=== PATIENT | male | born 1960 | race African-American/Black ===

== ENCOUNTER 2022-07-10 10:15 | Inpatient (IN) ==
[2022-07-10] MEDS ORDERED: hydrALAZINE 20 MG/1 ML VIAL IV STA (11:45)
[2022-07-10] MEDS ORDERED: ONDANSETRON 4 MG/2 ML VIAL IV STA (11:45)
[2022-07-10] MEDS ORDERED: ONDANSETRON 4 MG/2 ML VIAL ONE (11:46)
[2022-07-10] MEDS ORDERED: hydrALAZINE 20 MG/1 ML VIAL ONE (11:46)
[2022-07-10 11:51] LABS: Basophils # 0.1 10*3/uL (0.0-0.2); Basophils % 0.5 % (0.0-0.8); Eosinophils # 0.2 10*3/uL (0.0-0.87); Eosinophils % 1.7 % (0.00-10.9); Hematocrit 31.3 VOL% (42.0-52.0); Hemoglobin 10.6 GM/DL (14.0-18.0); Immature Granulocytes % 0.3 %; Immature Granulocytes Absolute 0.04 #; Lymphocytes # 1.1 10*3/uL (1.4-4.0); Lymphocytes % 8.7 % (21.2-54.2); Mean Corpuscular HGB Conc 33.9 GM/DL (32-36); Mean Corpuscular Volume 71.6 FL (87-102); Monocytes # 1.2 10*3/uL (0.11-0.8); Monocytes % 9.2 % (1.7-12.7); Neutrophils % 79.6 % (38.7-73.9); Platelet Count 170 T/CUMM (130-400); Red Blood Count 4.37 MC/CUMM (3.8-5.5); Red Cell Distribution Width 19.9 % (9.3-17.3); White Blood Count 12.9 T/CUMM (4-12)
[2022-07-10 12:08] LABS: Albumin 4.4 G/DL (3.4-5.0); Bilirubin,Total 1.2 MG/DL (0.20-1.00); Calcium 10.2 MG/DL (8.5-10.1); Osmolality,Calculated 271.4 MOS/KG (273-304); Potassium 3.9 MMOL/L (3.5-5.1)
[2022-07-10] MEDS ORDERED: ACETAMINOPHEN 325 MG TABLET PO PRN (15:22)
[2022-07-10] MEDS ORDERED: DOCUSATE SODIUM 100 MG CAPSULE PO PRN (15:22)
[2022-07-10] MEDS ORDERED: hydrALAZINE 20 MG/1 ML VIAL IV PRN (15:22)
[2022-07-10] MEDS ORDERED: cloNIDine 0.2 MG/24 HR PATCH TRANSDERM SCH (15:30)
[2022-07-10] MEDS ORDERED: MAGNESIUM HYDROXIDE SUSP 30 ML UDCUP PO PRN (16:23)
[2022-07-10] MEDS: NICOTINE 21 MG/24 HR PATCH TRANSDERM SCH (18:19)
[2022-07-10] MEDS: ONDANSETRON 4 MG/2 ML VIAL IV PRN (18:19)
[2022-07-10] MEDS: hydrALAZINE 20 MG/1 ML VIAL IV PRN ×2 (18:25→22:24)
[2022-07-10] MEDS: carvediloL 25 MG TABLET PO SCH (20:57)
[2022-07-10] MEDS: hydrALAZINE 25 MG TABLET PO SCH (20:57)
[2022-07-10] MEDS: DOCUSATE SODIUM 100 MG CAPSULE PO SCH (20:57)
[2022-07-10] MEDS: HEPARIN 5,000 UNIT/1 ML VIAL SUBCUT SCH (20:58)
[2022-07-10] MEDS: POLYETHYLENE GLYCOL POWDER 17 GM PACK PO SCH (21:04)
[2022-07-10] MEDS: cefTRIAXone 1,000 MG in SODIUM CHLORIDE 0.9% 100 ML IV SCH (21:04)
[2022-07-10 23:31] LABS: Barbiturates Screen,Urine Negative (Negative); Benzodiazepines Screen,Urine Negative (Negative); Cannabinoid Screen,Urine Negative (Negative); Opiate Screen,Urine Negative (Negative); Phencyclidine Screen,Urine Negative (Negative)
[2022-07-11] MEDS ORDERED: LABETALOL 20 MG/4 ML SYRINGE IV ONE (02:00)
[2022-07-11 05:18] LABS: Basophils # 0.1 10*3/uL (0.0-0.2); Basophils % 0.3 % (0.0-0.8); Eosinophils % 0.1 % (0.00-10.9); Hematocrit 32.6 VOL% (42.0-52.0); Hemoglobin 10.9 GM/DL (14.0-18.0); Immature Granulocytes % 0.3 %; Immature Granulocytes Absolute 0.05 #; Lymphocytes # 0.7 10*3/uL (1.4-4.0); Lymphocytes % 4.7 % (21.2-54.2); Mean Corpuscular HGB Conc 33.4 GM/DL (32-36); Mean Corpuscular Volume 71.6 FL (87-102); Monocytes # 1.3 10*3/uL (0.11-0.8); Neutrophils % 85.6 % (38.7-73.9); Platelet Count 174 T/CUMM (130-400); Red Blood Count 4.55 MC/CUMM (3.8-5.5); Red Cell Distribution Width 19.8 % (9.3-17.3); White Blood Count 14.8 T/CUMM (4-12)
[2022-07-11 05:48] LABS: Eosinophils 1 % (0-10); Hypochromia 1+; Lymphocytes 7 % (20-55); Microcytosis 1+; Target Cells Few; Total Cells Counted 100
[2022-07-11 05:49] LABS: Platelet Estimate Adequate
[2022-07-11 05:51] LABS: Calcium 9.8 MG/DL (8.5-10.1); Osmolality,Calculated 276.2 MOS/KG (273-304); Potassium 4.2 MMOL/L (3.5-5.1); Thyroid Stimulating Hormone 0.587 uIU/ml (0.358-3.74)
[2022-07-11] MEDS: HEPARIN 5,000 UNIT/1 ML VIAL SUBCUT SCH ×2 (09:35→22:12)
[2022-07-11] MEDS: ONDANSETRON 4 MG/2 ML VIAL IV PRN (09:35)
[2022-07-11] MEDS: NICOTINE 21 MG/24 HR PATCH TRANSDERM SCH (09:35)
[2022-07-11] MEDS: hydrALAZINE 20 MG/1 ML VIAL IV PRN (09:36)
[2022-07-11] MEDS ORDERED: METOPROLOL TARTRATE 5 MG/5 ML VIAL IV PRN (10:47)
[2022-07-11] MEDS: LINACLOTIDE 145 MCG CAPSULE PO SCH (10:56)
[2022-07-11] MEDS: DOCUSATE SODIUM 100 MG CAPSULE PO SCH ×2 (10:57→22:06)
[2022-07-11] MEDS: POLYETHYLENE GLYCOL POWDER 17 GM PACK PO SCH ×2 (10:57→22:06)
[2022-07-11] MEDS: carvediloL 25 MG TABLET PO SCH (10:57)
[2022-07-11] MEDS: hydrALAZINE 25 MG TABLET PO SCH (10:57)
[2022-07-11 11:54] LABS: % Iron Saturation 88.1 % (18-50)
[2022-07-11] MEDS ORDERED: LACTULOSE 320 GM/480 ML BOTTLE RECTAL ONE (13:00)
[2022-07-11] MEDS: hydrALAZINE 20 MG/1 ML VIAL IV SCH ×3 (13:33→23:07)
[2022-07-11] MEDS ORDERED: cloNIDine 0.3 MG/24 HR PATCH TRANSDERM SCH (14:00)
[2022-07-11] MEDS: NITROGLYCERIN 0.2 MG/HR PATCH TRANSDERM SCH (15:03)
[2022-07-11] MEDS: cefTRIAXone 1,000 MG in SODIUM CHLORIDE 0.9% 100 ML IV SCH (22:12)
[2022-07-11] MEDS: LACTULOSE 320 GM/480 ML BOTTLE RECTAL SCH (22:29)
[2022-07-11] MEDS ORDERED: LABETALOL 20 MG/4 ML SYRINGE IV PRN (23:20)
[2022-07-12] MEDS: LORazepam 2 MG/1 ML VIAL IV PRN (04:26)
[2022-07-12 05:55] LABS: Basophils % 0.3 % (0.0-0.8); Eosinophils # 0.1 10*3/uL (0.0-0.87); Eosinophils % 0.3 % (0.00-10.9); Hematocrit 31.1 VOL% (42.0-52.0); Hemoglobin 10.4 GM/DL (14.0-18.0); Immature Granulocytes % 0.6 %; Immature Granulocytes Absolute 0.09 #; Lymphocytes # 0.3 10*3/uL (1.4-4.0); Lymphocytes % 2.1 % (21.2-54.2); Mean Corpuscular HGB Conc 33.4 GM/DL (32-36); Mean Corpuscular Volume 71.8 FL (87-102); Monocytes # 1.5 10*3/uL (0.11-0.8); Monocytes % 9.8 % (1.7-12.7); Neutrophils % 86.9 % (38.7-73.9); Platelet Count 162 T/CUMM (130-400); Red Blood Count 4.33 MC/CUMM (3.8-5.5); Red Cell Distribution Width 19.7 % (9.3-17.3); White Blood Count 15.4 T/CUMM (4-12)
[2022-07-12 06:12] LABS: Risk Ratio 1.81; VLDL Cholesterol 10.8 MG/DL
[2022-07-12 06:17] LABS: Albumin 3.9 G/DL (3.4-5.0); Bilirubin,Total 0.8 MG/DL (0.20-1.00); Osmolality,Calculated 288.8 MOS/KG (273-304); Potassium 3.7 MMOL/L (3.5-5.1); Total Protein 7.7 G/DL (6.4-8.2)
[2022-07-12 06:26] LABS: Band Neutrophils 7 % (0-10); Lymphocytes 1 % (20-55); Total Cells Counted 100
[2022-07-12 06:27] LABS: Anisocytosis 1+; Macrocytosis 1+; Platelet Estimate Normal; Target Cells 1+
[2022-07-12 06:52] LABS: Ferritin 2379.8 ng/mL (26-388); Phosphorous 5.6 MG/DL (2.5-4.9)
[2022-07-12] MEDS: hydrALAZINE 20 MG/1 ML VIAL IV SCH ×3 (07:10→19:35)
[2022-07-12 07:24] LABS: Hepatitis B Core IgM Quant 0.07 Index; Hepatitis B Surface Ag Quant < 0.10 Index; Hepatitis B Surface Ag Result Non-Reactive (NonReactive); Hepatitis C Virus Ab Quant 0.03 Index; Hepatitis C Virus Ab Result Non-Reactive (NonReactive)
[2022-07-12] MEDS: LINACLOTIDE 145 MCG CAPSULE PO SCH (09:39)
[2022-07-12] MEDS: NITROGLYCERIN 0.2 MG/HR PATCH TRANSDERM SCH (09:40)
[2022-07-12] MEDS: HEPARIN 5,000 UNIT/1 ML VIAL SUBCUT SCH ×2 (13:08→20:34)
[2022-07-12] MEDS: LACTULOSE 320 GM/480 ML BOTTLE RECTAL SCH ×2 (13:08→21:50)
[2022-07-12] MEDS: DOCUSATE SODIUM 100 MG CAPSULE PO SCH ×2 (13:08→20:33)
[2022-07-12] MEDS: POLYETHYLENE GLYCOL POWDER 17 GM PACK PO SCH ×2 (13:09→20:34)
[2022-07-12] MEDS: PANTOPRAZOLE 40 MG VIAL IV SCH (13:12)
[2022-07-12] MEDS ORDERED: amLODIPine 5 MG TABLET PO ONE (14:53)
[2022-07-12] MEDS: SEVELAMER CARBONATE 800 MG TABLET PO SCH (19:33)
[2022-07-12 20:13] LABS: Folate 15.21 NG/ML (5.38-24.0)
[2022-07-12] MEDS: cefTRIAXone 1,000 MG in SODIUM CHLORIDE 0.9% 100 ML IV SCH (20:30)
[2022-07-13] MEDS: hydrALAZINE 20 MG/1 ML VIAL IV SCH ×4 (01:19→17:23)
[2022-07-13 05:08] LABS: Basophils # 0.1 10*3/uL (0.0-0.2); Basophils % 0.6 % (0.0-0.8); Eosinophils # 0.1 10*3/uL (0.0-0.87); Eosinophils % 0.8 % (0.00-10.9); Hematocrit 35.2 VOL% (42.0-52.0); Hemoglobin 11.7 GM/DL (14.0-18.0); Immature Granulocytes % 0.3 %; Immature Granulocytes Absolute 0.03 #; Lymphocytes # 1.1 10*3/uL (1.4-4.0); Lymphocytes % 11.3 % (21.2-54.2); Mean Corpuscular HGB Conc 33.2 GM/DL (32-36); Mean Corpuscular Volume 71.5 FL (87-102); Monocytes # 1.9 10*3/uL (0.11-0.8); Monocytes % 18.6 % (1.7-12.7); Neutrophils % 68.4 % (38.7-73.9); Platelet Count 194 T/CUMM (130-400); Red Blood Count 4.92 MC/CUMM (3.8-5.5); Red Cell Distribution Width 19.9 % (9.3-17.3); White Blood Count 10.1 T/CUMM (4-12)
[2022-07-13 05:35] LABS: Lymphocytes 18 % (20-55); Platelet Estimate Normal; Total Cells Counted 100
[2022-07-13 05:50] LABS: Calcium 10.5 MG/DL (8.5-10.1); Osmolality,Calculated 281.8 MOS/KG (273-304)
[2022-07-13] MEDS: NITROGLYCERIN 0.2 MG/HR PATCH TRANSDERM SCH (08:32)
[2022-07-13] MEDS: LINACLOTIDE 145 MCG CAPSULE PO SCH (08:32)
[2022-07-13] MEDS: HEPARIN 5,000 UNIT/1 ML VIAL SUBCUT SCH ×2 (08:33→22:16)
[2022-07-13] MEDS: amLODIPine 5 MG TABLET PO SCH (08:41)
[2022-07-13] MEDS: PANTOPRAZOLE 40 MG VIAL IV SCH (09:00)
[2022-07-13] MEDS: LACTULOSE 320 GM/480 ML BOTTLE RECTAL SCH ×2 (10:22→22:54)
[2022-07-13] MEDS: DOCUSATE SODIUM 100 MG CAPSULE PO SCH ×2 (10:23→22:15)
[2022-07-13] MEDS: POLYETHYLENE GLYCOL POWDER 17 GM PACK PO SCH ×2 (10:23→22:15)
[2022-07-13] MEDS: SEVELAMER CARBONATE 800 MG TABLET PO SCH ×3 (12:12→16:51)
[2022-07-13] MEDS: cefTRIAXone 1,000 MG in SODIUM CHLORIDE 0.9% 100 ML IV SCH (22:15)
[2022-07-14] MEDS: hydrALAZINE 20 MG/1 ML VIAL IV SCH ×2 (01:55→06:18)
[2022-07-14 06:01] LABS: Basophils # 0.1 10*3/uL (0.0-0.2); Basophils % 0.6 % (0.0-0.8); Eosinophils # 0.2 10*3/uL (0.0-0.87); Eosinophils % 1.4 % (0.00-10.9); Hematocrit 34.4 VOL% (42.0-52.0); Hemoglobin 11.4 GM/DL (14.0-18.0); Immature Granulocytes % 0.4 %; Immature Granulocytes Absolute 0.05 #; Lymphocytes # 1.7 10*3/uL (1.4-4.0); Lymphocytes % 12.6 % (21.2-54.2); Mean Corpuscular HGB Conc 33.1 GM/DL (32-36); Mean Corpuscular Volume 71.5 FL (87-102); Monocytes # 2.4 10*3/uL (0.11-0.8); Monocytes % 17.1 % (1.7-12.7); Neutrophils % 67.9 % (38.7-73.9); Platelet Count 197 T/CUMM (130-400); Red Blood Count 4.81 MC/CUMM (3.8-5.5); Red Cell Distribution Width 19.8 % (9.3-17.3); White Blood Count 13.8 T/CUMM (4-12)
[2022-07-14 06:18] LABS: Calcium 10.9 MG/DL (8.5-10.1); Osmolality,Calculated 290.8 MOS/KG (273-304); Potassium 4.2 MMOL/L (3.5-5.1)
[2022-07-14 06:20] LABS: Anisocytosis 1+; Eosinophils 5 % (0-10); Hypochromia Slight; Lymphocytes 14 % (20-55); Microcytosis 1+; Target Cells Few; Total Cells Counted 100
[2022-07-14 06:21] LABS: Platelet Estimate Adequate
[2022-07-14] MEDS: POLYETHYLENE GLYCOL POWDER 17 GM PACK PO SCH ×2 (08:57→20:32)
[2022-07-14] MEDS: PANTOPRAZOLE 40 MG VIAL IV SCH (08:57)
[2022-07-14] MEDS: amLODIPine 5 MG TABLET PO SCH (08:57)
[2022-07-14] MEDS: SEVELAMER CARBONATE 800 MG TABLET PO SCH ×3 (08:57→16:24)
[2022-07-14] MEDS: DOCUSATE SODIUM 100 MG CAPSULE PO SCH ×2 (08:57→20:32)
[2022-07-14] MEDS: HEPARIN 5,000 UNIT/1 ML VIAL SUBCUT SCH ×2 (08:58→20:32)
[2022-07-14] MEDS: NITROGLYCERIN 0.2 MG/HR PATCH TRANSDERM SCH (08:58)
[2022-07-14] MEDS: LINACLOTIDE 145 MCG CAPSULE PO SCH (08:59)
[2022-07-14] MEDS: LACTULOSE 320 GM/480 ML BOTTLE RECTAL SCH (08:59)
[2022-07-14] MEDS ORDERED: LACTULOSE 320 GM/480 ML BOTTLE RECTAL PRN (10:25)
[2022-07-14] MEDS: hydrALAZINE 20 MG/1 ML VIAL IV PRN ×2 (12:24→20:31)
[2022-07-14] MEDS: hydrALAZINE 25 MG TABLET PO SCH ×2 (16:25→20:32)
[2022-07-14] MEDS: LORazepam 2 MG/1 ML VIAL IV PRN (20:30)
[2022-07-14] MEDS: cefTRIAXone 1,000 MG in SODIUM CHLORIDE 0.9% 100 ML IV SCH (20:31)
[2022-07-14] MEDS: carvediloL 25 MG TABLET PO SCH (20:34)
[2022-07-15 06:17] LABS: Basophils # 0.1 10*3/uL (0.0-0.2); Basophils % 0.4 % (0.0-0.8); Eosinophils # 0.3 10*3/uL (0.0-0.87); Eosinophils % 1.6 % (0.00-10.9); Hematocrit 35.2 VOL% (42.0-52.0); Hemoglobin 11.7 GM/DL (14.0-18.0); Immature Granulocytes % 0.4 %; Immature Granulocytes Absolute 0.08 #; Lymphocytes # 1.2 10*3/uL (1.4-4.0); Lymphocytes % 6.1 % (21.2-54.2); Mean Corpuscular HGB Conc 33.2 GM/DL (32-36); Mean Corpuscular Volume 72.3 FL (87-102); Monocytes # 2.3 10*3/uL (0.11-0.8); Monocytes % 11.6 % (1.7-12.7); Neutrophils % 79.9 % (38.7-73.9); Platelet Count 198 T/CUMM (130-400); Red Blood Count 4.87 MC/CUMM (3.8-5.5); Red Cell Distribution Width 19.7 % (9.3-17.3); White Blood Count 19.9 T/CUMM (4-12)
[2022-07-15 06:36] LABS: Osmolality,Calculated 303.4 MOS/KG (273-304); Potassium 4.6 MMOL/L (3.5-5.1)
[2022-07-15 06:38] LABS: Albumin 3.8 G/DL (3.4-5.0); Bilirubin,Total 0.6 MG/DL (0.20-1.00); Calcium 10.8 MG/DL (8.5-10.1); Osmolality,Calculated 299.5 MOS/KG (273-304); Potassium 4.3 MMOL/L (3.5-5.1); Total Protein 8.2 G/DL (6.4-8.2)
[2022-07-15] MEDS ORDERED: amLODIPine 10 MG TABLET PO SCH (09:00)
[2022-07-15] MEDS: hydrALAZINE 25 MG TABLET PO SCH ×2 (09:27→20:41)
[2022-07-15] MEDS: HEPARIN 5,000 UNIT/1 ML VIAL SUBCUT SCH ×2 (09:27→20:59)
[2022-07-15] MEDS: LINACLOTIDE 145 MCG CAPSULE PO SCH (09:27)
[2022-07-15] MEDS: carvediloL 25 MG TABLET PO SCH (09:27)
[2022-07-15] MEDS: SEVELAMER CARBONATE 800 MG TABLET PO SCH ×3 (09:27→18:37)
[2022-07-15] MEDS: DOCUSATE SODIUM 100 MG CAPSULE PO SCH ×2 (09:27→20:59)
[2022-07-15] MEDS: POLYETHYLENE GLYCOL POWDER 17 GM PACK PO SCH ×2 (09:27→20:59)
[2022-07-15 11:52] LABS: Arterial Base Excess iSTAT 1 MMOL/L (-2.5-2.5); Arterial Bicarbonate iSTAT 26.1 MMOL/L (20-26); Arterial O2 Saturation iSTAT 97 % (95-100); Arterial PCO2 iSTAT 43 MM HG (35-48); Arterial PO2 iSTAT 96 MM HG (80-95); Arterial Total CO2 iSTAT 27 MMO/L (23-27); Arterial pH iSTAT 7.391 (7.35-7.45)
[2022-07-15] MEDS: NITROGLYCERIN 0.2 MG/HR PATCH TRANSDERM SCH (18:38)
[2022-07-15] MEDS: PANTOPRAZOLE 40 MG VIAL IV SCH (18:39)
[2022-07-15] MEDS: cefTRIAXone 1,000 MG in SODIUM CHLORIDE 0.9% 100 ML IV SCH (21:00)
[2022-07-16 04:40] LABS: Basophils # 0.1 10*3/uL (0.0-0.2); Basophils % 0.6 % (0.0-0.8); Eosinophils # 0.5 10*3/uL (0.0-0.87); Eosinophils % 4.5 % (0.00-10.9); Hematocrit 34.2 VOL% (42.0-52.0); Hemoglobin 11.5 GM/DL (14.0-18.0); Immature Granulocytes % 0.5 %; Immature Granulocytes Absolute 0.06 #; Lymphocytes # 1.7 10*3/uL (1.4-4.0); Lymphocytes % 13.7 % (21.2-54.2); Mean Corpuscular HGB Conc 33.6 GM/DL (32-36); Monocytes # 1.8 10*3/uL (0.11-0.8); Monocytes % 14.6 % (1.7-12.7); Neutrophils % 66.1 % (38.7-73.9); Platelet Count 199 T/CUMM (130-400); Red Blood Count 4.75 MC/CUMM (3.8-5.5); Red Cell Distribution Width 19.4 % (9.3-17.3)
[2022-07-16 04:53] LABS: Calcium 10.6 MG/DL (8.5-10.1); Osmolality,Calculated 282.1 MOS/KG (273-304)
[2022-07-16] MEDS: POLYETHYLENE GLYCOL POWDER 17 GM PACK PO SCH (09:20)
[2022-07-16] MEDS: DOCUSATE SODIUM 100 MG CAPSULE PO SCH (09:21)
[2022-07-16] MEDS: SEVELAMER CARBONATE 800 MG TABLET PO SCH ×2 (09:22→13:42)
[2022-07-16] MEDS: LINACLOTIDE 145 MCG CAPSULE PO SCH (09:22)
[2022-07-16] MEDS: NITROGLYCERIN 0.2 MG/HR PATCH TRANSDERM SCH (09:23)
[2022-07-16] MEDS: PANTOPRAZOLE 40 MG VIAL IV SCH (09:25)
[2022-07-16] MEDS: HEPARIN 5,000 UNIT/1 ML VIAL SUBCUT SCH (09:31)
[2022-07-16 14:49] VITALS: BP 154/80
== END 2022-07-16 15:10 | disposition home or self-care (01) | DRG 291 ==
LOC: N.ED 10:15 → N.EDINP 10:15 → SUATTDRO 15:17 → N.TELEN 16:39 → SUATTDRO 07-14 09:35
PROVIDERS: ADMIT Internal Medicine Geriatric Medicine; ATTEND Internal Medicine